=== PATIENT | female | born 1985 | race American Indian/Alaskan Native ===

== ENCOUNTER 2016-10-17 01:54 | Inpatient (IN) | payer OTHER ==
[2016-10-17 02:19] VITALS: BMI 26.9
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
[2016-10-17] MEDS: Lactated Ringer's 1,000 ML IV SCH ×2 (03:30→04:35)
[2016-10-17 03:42] VITALS: BP 126/90; PULSE 87; RESP 16; TEMP 98.3; O2SAT 100
[2016-10-17] MEDS ORDERED: Oxytocin 20 units in LR 0 ML IV ONE (03:45)
[2016-10-17] MEDS ORDERED: Lidocaine 1% Inj (20ml) ONE ×2 (03:46→07:38)
[2016-10-17 04:16] LABS: HEMOGLOBIN 12.9 g/dL (12.0-16.0); MEAN CELL VOLUME 86.6 fl (81.0-99.0); MEAN CORPUSCULAR HEMOGLOBIN 29.1 pg (27.0-31.0); MEAN CORPUSCULAR HGB CONC 33.7 g/dL (33.0-37.0); RBC 4.41 Mil/uL (3.80-5.20); WHITE BLOOD COUNT 10.2 K/uL (4.8-10.8)
[2016-10-17] MEDS ORDERED: Fentanyl/Bupivacaine HCl 250 ML EPI ONE (05:13)
[2016-10-17] MEDS ORDERED: Bupivacaine HCl 0.25% PF (10 ml) Inj ONE (05:13)
[2016-10-17] MEDS ORDERED: Lactated Ringer's 500 ML IV SCH (05:45)
[2016-10-17] MEDS ORDERED: Lactated Ringer's 1,000 ML IV SCH (06:00)
--- NOTE | 2016-10-17 10:06 | OBDS ---
DELIVERY PERSONNEL Delivery Doctor: Milena Sands MD Crime Investigator Special Agent: Ewelina Hodges RN MATERNAL INFORMATION Delivery Anesthesia: Local; Epidural Medications in Delivery: Pitocin Placenta Cultured: No Maternal Complications: None Provider Comments: Delivered a live baby boy at 9:43 AM () the baby was bulb suctioned on the pe rineum and transferred to maternal chest. The cord was clamped and cut and 3 vessels noted cord blood was obtained and sent to the lab. The placenta was delivered at 9:53 AM intact, the estimated blood loss was 200 mL. There was a first-degree vaginal laceration which was repaired with 2-0 Rapide. The mother tolerated the procedure well and the baby went to the well baby nursery with Apgars of 9 and 1 0 weighing 3600 g LABOR SUMMARY EDC: 10/19/2016 00:00 No. Babies in Womb: 1 Attempted: Yes Labor Anesthesia: Epidural LABOR INFORMATION Reason for Induction: Not Applicable Onset of Labor: 10/16/2016 23:00 Complete Dilatation: 10/17/2016 08:37 Oxytocin: N/A Group B Beta Strep: Negative Antibiotics # of Doses: n/a Antibiotics Time of Last Dose: n/a Steroids Given: None Reason Steroids Not Administered: Not Applicable Other Reason Not Administered: n/a MEMBRANES Membranes Rupture Method: Spontaneous Rupture of Membranes: 10/16/2016 23:00 Length of Rupture (hrs): 10.72 Amniotic Fluid Color: Clear Amniotic Fluid Amount: Small Amniotic Fluid Odor: Normal STAGES OF LABOR Stage 1 hrs: 9 Stage 1 min: 37 Stage 2 hrs: 1 Stage 2 min: 6 Stage 3 hrs: 0 Stage 3 min: 10 Total Time in Labor hrs: 10 Total Time in Labor min: 53 VAGINAL DELIVERY Episiotomy: None Laceration Extension: First Degree Laceration Type: Vaginal Initial Vag Sponge Count: 5 Final Vag Sponge Count: 5 Initial Vag Sharps Count: 1 Final Vag Sharps Count: 1 Sponge Count Correct: Yes Sharps Count Correct: 1 Count Comment: 5 BABY A INFORMATION Infant Delivery Date/Time: 10/17/2016 09:43 Method of Delivery: Born in Route : No : N/A Forceps: N/A Vacuum Extraction: N/A Shoulder Dystocia : Yes SHOULDER DYSTOCIA BABY A Delivery Date/Time: 10/17/2016 09:43 PRESENTATION/POSITION BABY A Presentation: Cephalic Cephalic Presentation: N/A Breech Presentation: N/A PLACENTA INFORMATION BABY A Placenta Delivery Time : 10/17/2016 09:53 Placenta Method of Delivery: Spontaneous Placenta Status: Delivered SCORES BABY A Heart Rate 1 min: >100 bpm Resp Effort 1 min: Good Cry Reflex Irritability 1 min: Cough or Sneeze or Pulls Away Muscle Tone 1 min: Active Motion Color 1 min: Body [place], Extremities Blue Resuscitation Effort 1 min: Tactile Stimulation SCORE 1 MIN: 9 Heart Rate 5 min: >100 bpm Resp Effort 5 min: Good Cry Reflex Irritability 5 min: Cough or Sneeze or Pulls Away Muscle Tone 5 min: Active Motion Color 5 min: Completely [place] Resuscitation Effort 5 min: N/A SCORE 5 MIN: 10 INFANT INFORMATION BABY A Gestational Age at Delivery: 39.5 Gestational Status: Term Infant Outcome : Liveborn Infant Condition : Stable Sex: Male IDENTIFICATION/MEDS BABY A ID Band Number: [id number] ID Band Location: Left Leg; Left Arm Vitamin K Given : Not Given Erythromycin Given: Not Given WEIGHT/LENGTH BABY A Infant Birthweight (gms): 36 Infant Weight (lb): 0 Infant Weight (oz): 1 CORD INFORMATION BABY A No. Cord Vessels: 3 Nuchal Cord : Around Neck x1, Loose Nuchal Cord Other: n/a True Knot: n/a Infant Cord pH Baby Arterial: n/a Cord pH Baby Venous: n/a Cord Blood Taken: Yes Banking/Donate Info: n/a Suction: Mouth; Nose ASSESSMENT BABY A Infant Complications: None Physical Findings at Delivery: Within Normal Limits Infant Respirations: Appears Normal Corporate Legal Manager/ALS Called : No Infant Care By: Dr Gore/Otf Transferred To: [facility]
[2016-10-17] MEDS ORDERED: Oxycodone/Acetaminophen 5/325 mg Tab PO PRN ×3 (10:08→13:30)
[2016-10-17] MEDS ORDERED: Oxytocin 30 units/LR 500ML 30 U/500 ML BAG IV SCH (10:08)
[2016-10-17] MEDS: Oxycodone/Acetaminophen 5/325 mg Tab PO PRN (20:03)
[2016-10-18] MEDS: Oxycodone/Acetaminophen 5/325 mg Tab PO PRN ×2 (01:49→06:16)
[2016-10-18 07:05] LABS: HEMOGLOBIN 11.4 g/dL (12.0-16.0); MEAN CELL VOLUME 88.3 fl (81.0-99.0); MEAN CORPUSCULAR HEMOGLOBIN 28.3 pg (27.0-31.0); RBC 4.03 Mil/uL (3.80-5.20); RED CELL DISTRIBUTION WIDTH 15.5 % (11.5-14.5); WHITE BLOOD COUNT 12.7 K/uL (4.8-10.8)
--- NOTE | 2016-10-18 07:21 | OBPPN ---
Datetime: 10/18/2016 07:17 PP Pain Prov: Within normal limits PP Abdomen/Uterus Prov: Normal PP Lochia Prov: Normal PP Extremities Prov: Normal PP Progress Prov: Normal PP Impression Prov: Normal progression PP Plan Prov: Continue present management PP Progress Note Prov: PDD 1 s/p , doing well, breast feeding Continue current management Vital Signs Provider PP: Reviewed
[2016-10-19] MEDS: Oxycodone/Acetaminophen 5/325 mg Tab PO PRN (05:59)
--- NOTE | 2016-10-19 07:47 | OBPPN ---
Datetime: 10/19/2016 07:44 PP Pain Prov: Within normal limits PP Abdomen/Uterus Prov: Normal PP Lochia Prov: Normal PP Extremities Prov: Normal PP Impression Prov: Normal progression PP Plan Prov: Discharge PP Progress Note Prov: PPD 2 s/p , doing well, breast feeding Rx motrin given Discharge home Vital Signs Provider PP: Reviewed
--- NOTE | 2016-10-19 07:49 | OBDCSUM ---
Datetime: 10/19/2016 07:46 Discharged to, Provider: Home Follow up at, Provider: Dr. Sands Disch Instr Activity: Normal activity; May Shower Disch Instr Diet: Regular Discharge Instructions, Provider: Routine instructions given Discharge Diagnosis, Provider: Term Delivered Discharge Time: 10/19/2016 07:46 Follow up in weeks, Provider: 6 weeks Contraception discussed, Prov: No Disch Activity Restrictions: No exercising; No sexual activity; Nothing in vagina - [place], [place]
== END 2016-10-19 14:30 | disposition home or self-care (01) | DRG 373 ==
LOC: H.EROB2 01:54 → H.L&D 02:54 → H.OB/GYN 13:05
PROVIDERS: ADMIT Obstetrics & Gynecology; ATTEND Obstetrics & Gynecology
PROC: 10E0XZZ Delivery of Products of Conception, External Approach (ICD-10-PCS; principal; 2016-10-17)
PROC: 0HQ9XZZ Repair Perineum Skin, External Approach (ICD-10-PCS; 2016-10-17)
PROC: 4A1HXCZ Monitoring of Products of Conception, Cardiac Rate, External Approach (ICD-10-PCS; 2016-10-17)
DX: O34.211 Maternal care for low transverse scar from previous cesarean delivery (principal); O66.0 Obstructed labor due to shoulder dystocia; O70.0 First degree perineal laceration during delivery; O69.81X0 Labor and delivery complicated by cord around neck, without compression, not applicable or unspecified; Z37.0 Single live birth; Z3A.39 39 weeks gestation of pregnancy